=== PATIENT | female | born 1970 | race Caucasian/White ===

== ENCOUNTER 2024-06-17 09:52 | Day surgery (SDC) | payer OTHER, MEDICAID ==
[2024-06-12 15:21] LABS: BASOPHILS # (AUTO) 0.1 X10'3 (0-0.2); BASOPHILS % (AUTO) 1.3 % (0-1); EOSINOPHILS # (AUTO) 0.1 X10'3 (0-0.9); LYMPHOCYTES # (AUTO) 1.9 X10'3 (1.1-4.8); LYMPHOCYTES % (AUTO) 26.9 % (21-51); MEAN CORPUSCULAR HEMOGLOBIN 28.3 PG (27.0-31.0); MEAN CORPUSCULAR HGB CONC 33.5 g/dL (33.0-36.5); MEAN CORPUSCULAR VOLUME 84.3 FL (78-98); MEAN PLATELET VOLUME 9.7 FL (7.4-10.4); MONOCYTES # (AUTO) 0.4 X10'3 (0-0.9); MONOCYTES % (AUTO) 5.5 % (2-12); NEUTROPHILS # (AUTO) 4.6 X10'3 (1.8-7.7); NEUTROPHILS % (AUTO) 64.3 % (42-75); PRE OP HEMATOCRIT 41.8 % (35.0-45.0); PRE OP PLATELET COUNT 199 X10'3 (140-440); PRE OP WHITE BLOOD COUNT 7.2 10'3 (4.8-10.8); RED BLOOD COUNT 4.96 X10'6 (4.20-5.60); RED CELL DISTRIBUTION WIDTH 14.3 % (11.5-14.5)
[2024-06-12 15:29] LABS: ALBUMIN 3.7 G/DL (3.4-5.0); ALBUMIN/GLOBULIN RATIO 1.1 (1.1-1.5); ALKALINE PHOSPHATASE 105 IU/L (46-116); BLOOD UREA NITROGEN 9 MG/DL (7-18); BUN/CREATININE RATIO 10.1 (10.0-20.0); CALCIUM 9.3 MG/DL (8.5-10.1); CHLORIDE 101 MMOL/L (99-107); CREATININE 0.89 MG/DL (0.40-0.90); PRE OP ANION GAP 11 (8-16); PRE OP AST 56 U/L (10-37); PRE OP BILIRUB, TOTAL 0.4 MG/DL (0.0-1.0); PRE OP POTASSIUM 3.9 MMOL/L (3.4-5.1); PRE OP SODIUM 140 MMOL/L (135-145); TOTAL CARBON DIOXIDE 27.7 MMOL/L (24-32); TOTAL PROTEIN 7.2 G/DL (6.4-8.2); eGFR 66 ML/MIN
[2024-06-12 15:32] LABS: PRE OP GLUCOSE 273 MG/DL (70-104)
[2024-06-12 15:33] LABS: PRE OP ALT 90 U/L (30-65)
[~2024-06-17] VITALS: Ht 160 cm; Wt 74.0 kg
[2024-06-17] VITALS (10 sets, daily range): BP systolic 136–157; BP diastolic 72–93; PULSE 69–101; RESP 12–18; TEMP 97.9; O2SAT 78–98
[2024-06-17] MEDS: cefazolin 2gm/D5W 100mL 100 ML IV ONE (05:30)
[~2024-06-17 09:52] MED LIST: METF-1203 PO
[2024-06-17] MEDS: famotidine 20mg tablet PO ONE (10:31)
[2024-06-17] MEDS: ringers solution, lacted 1,000 ML IV SCH (10:32)
[2024-06-17] MEDS: INDOCYANINE GREEN 25 MG/10 ML VIAL IV ONE (10:32)
[2024-06-17] MEDS ORDERED: meperidine/PF 25mg/ml syringe IV PRN ×3 (12:05)
[2024-06-17] MEDS ORDERED: ringers solution, lacted 1,000 ML IV SCH (12:05)
[2024-06-17] MEDS ORDERED: morphine 2 MG/ML inj. syringe IV PRN (12:05)
[2024-06-17] MEDS ORDERED: morphine 4 MG/ML inj SYRINge IV PRN (12:05)
[2024-06-17] MEDS ORDERED: enalaprilat dihydrate 2.5mg/2ml vial IV PRN (12:05)
[2024-06-17] MEDS ORDERED: labetalol 20mg/4ml (5mg/ml) syringe IV PRN (12:05)
[2024-06-17] MEDS: insulin regular, human U-100 3ml vial - multi-dose IV ONE ×2 (12:18→12:19)
[2024-06-17] MEDS ORDERED: INDOCYANINE GREEN 25 MG/10 ML VIAL IV ONE (12:41)
[2024-06-17] MEDS ORDERED: sevoflurane 250ml liquid IH ONE (12:50)
[2024-06-17] MEDS ORDERED: fentaNYL/PF 50MCG/1 ML 2ML syringe ONE (13:01)
[2024-06-17] MEDS ORDERED: midazolam 1 mg/ML 2ml injection ONE (13:01)
[2024-06-17] MEDS ORDERED: propofol inj 20 ML IV ONE (13:14)
[2024-06-17] MEDS ORDERED: LIDOcaine 2% (20mg/ml) 5ml vial ONE (13:14)
[2024-06-17] MEDS ORDERED: rocuronium 10mg/ml inj IV ONE (13:14)
[2024-06-17] MEDS ORDERED: meperidine/PF 25mg/ml syringe ONE (13:15)
[2024-06-17] MEDS: BUPIVAcaine/PF 2.5mg/ml (0.25%) 10ml vial ONE (13:45)
[2024-06-17] MEDS ORDERED: ondansetron/PF 4mg/2ml inj ONE (13:47)
[2024-06-17] MEDS ORDERED: acetaminophen 1,000mg/100ml IV 100 ML IV ONE (13:48)
[2024-06-17] MEDS: LIDOcaine 1% (10mg/ml)w/preservative inj. 20ml MDV ONE (13:50)
[2024-06-17] MEDS ORDERED: oxyCODONE/APAP 5-325mg tablet PO PRN (14:30)
[2024-06-17] MEDS: ondansetron/PF 4mg/2ml inj IV PRN (14:49)
[2024-06-17] MEDS: proCHLORperazine 10 MG/2 ml inj IV PRN (15:12)
== END 2024-06-17 15:43 | disposition home or self-care (01) ==
LOC: PAS 09:52
PROVIDERS: ATTEND Surgery
DX: K80.10 Calculus of gallbladder with chronic cholecystitis without obstruction (principal); E11.9 Type 2 diabetes mellitus without complications; Z86.73 Personal history of transient ischemic attack (TIA), and cerebral infarction without residual deficits; Z79.84 Long term (current) use of oral hypoglycemic drugs; Z83.3 Family history of diabetes mellitus
CPT/HCPCS: 36415; 47563; 80053; 82948; 85025; 93005; J0131; J0690; J0780; J1100; J1815; J2175; J2250; J2405; J2704; J2710; J3010; J3490; J7030; J7120; S2900; Z7506; Z7508; Z7512; A4215; A4618; A7000